=== PATIENT | female | born 1940 | race Two or more races ===

== ENCOUNTER 2023-11-11 08:04 | Outpatient (CLI) | payer OTHER | END 2023-11-11 08:11 | disposition home or self-care (01) | LOC: SONOGRAMA 08:04 | PROVIDERS: ATTEND Internal Medicine Gastroenterology | DX: R10.9 Unspecified abdominal pain (principal); R10.13 Epigastric pain ==

== ENCOUNTER 2023-11-28 07:52 | Outpatient (CLI) | payer OTHER | END 2023-11-28 07:54 | disposition home or self-care (01) | LOC: NUCLEAR 07:52 | DX: C21.1 Malignant neoplasm of anal canal (principal); R91.1 Solitary pulmonary nodule | CPT/HCPCS: 78815; A9552 ==

== ENCOUNTER 2024-03-10 09:46 | Outpatient (CLI) | payer OTHER | END 2024-03-10 09:54 | disposition home or self-care (01) | LOC: TOM 09:46 | DX: D38.1 Neoplasm of uncertain behavior of trachea, bronchus and lung (principal) ==